=== PATIENT | male | born 1980 | race Caucasian/White ===

== ENCOUNTER 2018-08-04 22:39 | Emergency (ER) | payer BC ==
[~2018-08-04] VITALS: Ht 185.4 cm; Wt 81.6 kg
[2018-08-04] MEDS ORDERED: STELARA90 MG/1 ML (22:58)
[2018-08-05] MEDS ORDERED: TAMIFLU45 MG PO (02:44)
[2018-08-05] MEDS ORDERED: ZYRTEC10 M3 PO (02:44)
[2018-08-05] MEDS ORDERED: ZYNCOF 20-400120 ML PO (02:44)
== END 2018-08-05 03:10 | disposition home or self-care (01) ==
LOC: ER 22:39
DX: J11.1 Influenza due to unidentified influenza virus with other respiratory manifestations (principal)